=== PATIENT | male | born 1980 | race Caucasian/White ===

== ENCOUNTER 2016-09-12 09:36 | Emergency (ER) | payer BC ==
--- NOTE | 2016-09-12 09:44 | UC ---
Cardiac HPI - HPI Summary HPI Summary: 35 YEAR OLD MALE PRESENTS WITH CHEST PAIN. - History of Current Complaint Chief Complaint: UCChestPain Stated Complaint: CHEST PAINS Time Seen by Provider: 09/12/16 09:43 - Allergy/Home Medications Allergies/Adverse Reactions: Allergies Allergy/AdvReac Type Severity Reaction Status Date / Time No Known Allergies Allergy Verified 09/12/16 09:48 Home Medications: Home Medications Aspirin Low Dose CHEW TAB* [Aspirin Low Dose TAB*] 81 mg PO DAILY 09/12/16 [ History Confirmed 09/12/16] Calcitriol CAP* [Rocaltrol CAP*] 0.25 mcg PO DAILY 09/12/16 [History Confirmed 09/12/16] Febuxostat(NF) [Uloric(NF)] 1 tab PO DAILY 09/12/16 [History Confirmed 09/12/16] Losartan TAB* [Cozaar TAB*] 25 mg PO DAILY 09/12/16 [History Confirmed 09/12/16] NIFEdipine ER TAB* [Procardia Xl TAB*] 90 mg PO DAILY 09/12/16 [History Confirmed 09/12/16] Nebivolol HCl [Bystolic] 20 mg PO DAILY 09/12/16 [History Confirmed 09/12/16] Torsemide TAB* [Demadex*] 20 mg PO DAILY 09/12/16 [History Confirmed 09/12/16] cloNIDine 0.3 MG PATCH* [[id number]-[id number]-6 0.3 mg Patch*] 0.3 mg TRANSDERM Q7D 06/26 [History Confirmed 09/12/16] PMH/Surg Hx/FS Hx/Imm Hx - Surgical History Surgical History: Yes Surgery Procedure, Year, and Place: ACL R knee. kidney reflux surgery- 1996 - Social History Alcohol Use: Occasionally Substance Use Type: None Smoking Status (MU): Current Some Day Smoker Review of Systems Constitutional: Negative Skin: Negative Eyes: Negative ENT: Negative Respiratory: Negative Cardiovascular: Chest Pain Gastrointestinal: Negative Genitourinary: Negative Motor: Negative Neurovascular: Negative Musculoskeletal: Negative Neurological: Negative Psychological: Negative All Other Systems Reviewed And Are Negative: Yes Physical Exam Triage Information Reviewed: Yes Vital Signs: Initial Vital Signs Temp 36.3 C 09/12/16 09:39 Pulse 71 09/12/16 09:39 Resp 16 09/12/16 09:39 BP 194/132 09/12/16 09:39 Pulse Ox 99 09/12/16 09:39 Eye Exam: Normal ENT Exam: Normal Dental Exam: Normal Neck exam: Normal Neck: Positive: 1 Respiratory Exam: Normal Cardiovascular Exam: Normal Abdominal Exam: Normal Musculoskeletal Exam: Normal Neurological Exam: Normal Psychological Exam: Normal Skin Exam: Normal - Clinical Impression Provider Diagnoses: CHEST PAIN Discharge - Discharge Plan Condition: Guarded Disposition: AGAINST MEDICAL ADVICE Discharge Disposition Comment: ER STAT Patient Education Materials: Chest Pain (ED) Referrals: Marlen Johns MD [Primary Care Provider] - Additional Instructions: ER STAT
[2016-09-12 09:52] VITALS: BP 179/129
== END 2016-09-12 10:05 | disposition left against medical advice (07) ==
LOC: UCCORT 09:36
DX: R07.9 Chest pain, unspecified (principal); F17.200 Nicotine dependence, unspecified, uncomplicated
CPT/HCPCS: 93005; 99203; G0463